=== PATIENT | male | born 1950 | race Caucasian/White ===

== ENCOUNTER 2017-06-19 14:31 | Outpatient (CLI) | payer MEDICARE, BC ==
[2017-06-19] MEDS ORDERED: ATORVASTATIN CA10 MG ORAL (16:25)
[2017-06-19] MEDS ORDERED: METFORMIN HCL500 M1 ORAL (16:25)
[2017-06-19] MEDS ORDERED: TAMSULOSIN HCL0.4 MG ORAL (16:26)
--- NOTE | 2017-06-19 16:30 | GI Initial Consult Note ---
Long,Thelma Maico NMorrisPMorris 06/19/17 1630: History of Present Illness General Date patient seen: Jun 19, 2017 Time patient seen: 16:21 Referring physician: None Reason for Consultation: Routine colonoscopy Present Illness HPI 67 year old male presents today for routine colonoscopy. Last colonoscopy performed was over 5 years ago. Denies any abdominal pain or other GI complaints. States he has urges to urinate. No signs of abuse or neglect. Patient is not fall risk. Denies any unintentional weight loss or changes in dietary habits. Home Meds Reported Medications Tamsulosin Hcl (TAMSULOSIN HCL*) 0.4 Mg Cap.er.24h, 0.4 MG ORAL BEDTIME, CAP 06/19/17 Atorvastatin Calcium* (LIPITOR*) 10 Mg Tablet, 10 MG ORAL BEDTIME, TAB 06/19/17 Metformin Hcl* (METFORMIN HCL*) 500 Mg Tablet, 500 MG ORAL TWICE A DAY, TAB 06/19/17 Med list reviewed/reconciled: Yes Allergies: Coded Allergies: No Known Allergies (Unverified , 06/19/17) Patient History History Provided By: Patient PMH Narrative BPH Sleep Apnea No surgical history Family History Narrative Father >> Lung CA Social History: Reports: smoking, other - coffee Review of Systems All Other Systems: negative except mentioned in HPI Physical Exam HT 5'5 WT 164lbs Sp02 EP Interpretation: reviewed, normal General Appearance: well appearing, no apparent distress, alert Head: normocephalic EENT: PERRL/EOMI, normal ENT inspection Neck: supple Respiratory: normal breath sounds, no respiratory distress Cardiovascular: normal rate Gastrointestinal: normal inspection, non tender, soft, normal bowel sounds, non -distended Rectal: deferred Genitourinary: deferred Musculoskeletal: normal inspection, back normal Neurologic: normal inspection, alert, oriented x3, responsive Psychiatric: normal inspection, judgement/insight normal, memory normal Skin: normal inspection, normal color, no rash, warm/dry, palpation normal, well hydrated Lymphatic: normal inspection, no adenopathy GI: Plan Problems: (1) BPH (benign prostatic hyperplasia) (2) Sleep apnea (3) Colonoscopy planned Plan colonoscopy scheduled 07/07/16 - CLD & (Nulytely/Suprep/Movi-Prep) prep instructions given and acknowledged by patient. - NPO @ [place] day prior procedure explained. Seen with Dr. Saravia. Thank you for this patient referral. SHEELA SARAVIA 06/24/17 1227: History of Present Illness Present Illness Home Meds Reported Medications Tamsulosin Hcl (TAMSULOSIN HCL*) 0.4 Mg Cap.er.24h, 0.4 MG ORAL BEDTIME, CAP 06/19/17 Atorvastatin Calcium* (LIPITOR*) 10 Mg Tablet, 10 MG ORAL BEDTIME, TAB 06/19/17 Metformin Hcl* (METFORMIN HCL*) 500 Mg Tablet, 500 MG ORAL TWICE A DAY, TAB 06/19/17 Allergies: Coded Allergies: No Known Allergies (Unverified , 06/19/17) GI: Plan Plan The patient was seen and examined at bedside and all new and available data was reviewed in the patients chart. I agree with the above findings, impression and plan. (Patient seen earlier today. Signature stamp does not reflect patient encounter time.). - MD Mercedes Rod Anh Maico Grier Jun 19, 2017 16:30 SHEELA SARAVIA Jun 24, 2017 12:27
== END 2017-06-19 15:05 | disposition home or self-care (01) ==
LOC: PAN 14:31
DX: N40.0 Benign prostatic hyperplasia without lower urinary tract symptoms (principal); G47.30 Sleep apnea, unspecified
CPT/HCPCS: 99201

== ENCOUNTER 2017-07-14 09:09 | Day surgery (SDC) | payer MEDICARE, BC ==
[2017-07-14] VITALS (8 sets, daily range): BP systolic 128–144; BP diastolic 74–85
[~2017-07-14] VITALS: Ht 167.6 cm; Wt 72.6 kg
--- NOTE | 2017-07-14 07:03 | Anethesia Preoperative Eval ---
Anesthesia Pre-op PMH/ROS General Date of Evaluation: Jul 14, 2017 Time of Evaluation: 07:02 Anesthesiologist: lia ASA Score: ASA 3 Mallampati Score Class I : Soft palate, uvula, fauces, pillars visible Class II: Soft palate, uvula, fauces visible Class III: Soft palate, base of uvula visible Class IV: Only hard plate visible Mallampati Classification: Class II Surgeon: roderick Diagnosis: gerd/colon screening Surgical Procedure: egd/colonoscopy Anesthesia History: none Social History: current smoker Family History: no anesthesia problems Allergies: Coded Allergies: No Known Allergies (Unverified , 06/19/17) Medications: see eMAR Past Medical History Pulmonary: Reports: JAME Endocrine: Reports: DM Anesthesia Pre-op Phys. Exam Physician Exam Last Vital Signs Date Time Temp Pulse Resp B/P (MAP) Pulse Ox O2 Delivery O2 Flow Rate FiO2 07/14/17 09:31 97.6 60 18 144/77 98 Room Air Constitutional: NAD Neurologic: CN 2-12 intact Cardiovascular: RRR Respiratory: CTA Gastrointestinal: S/NT/ND Airway Exam Mallampati Score: Class II MO: full Neck: short TMD: 2fb ROM: limited Anesthesia Pre-op A/P Studies Pre-op Studies: EKG - nsr Risk Assessment & Plan Assessment: asa3 Plan: mac Status Change Before Surgery: No Pre-Antibiotics Drug: JAYE Norman Jul 14, 2017 07:03
[~2017-07-14 09:09] MED LIST: ATORVASTATIN CA10 MG ORAL; METFORMIN HCL500 M1 ORAL; TAMSULOSIN HCL0.4 MG ORAL
--- NOTE | 2017-07-14 10:25 | Pre-Procedure Note/Attestation ---
Pre-Procedure Note/Attestation Complete Prior to Procedure Planned Procedure: not applicable Procedure Narrative: esophagogastroduodenoscopy and colonoscopy Indications for Procedure Pre-Operative Diagnosis: gerd, screening colon Attestation I attest that I discussed the nature of the procedure; its benefits; risks and complications; and alternatives (and the risks and benefits of such alternatives ), prior to the procedure, with the patient (or the patient's legal farm loan representative). I attest that, if there was a reasonable possibility of needing a blood transfusion, the patient (or the patient's legal farm loan representative) was given the [facility] standardized written summary, pursuant to the [employer] [place] Blood Safety Act ([place] Health and Safety Code # 1645, as amended). I attest that I re-evaluated the patient just prior to the surgery and that there has been no change in the patient's H&P, except as documented below: SHEELA SARAVIA Jul 14, 2017 10:25
--- NOTE | 2017-07-14 10:26 | Short Stay Surgery H&P ---
History of Present Illness History of Present Illness Chief Complaint see recent consult note HPI Martin Holt is a 67 year old male who was admitted on for Gerd/Colon Screening Patient History Allergies: Coded Allergies: No Known Allergies (Unverified , 06/19/17) PAST MEDICAL HISTORY: Past Surgeries: Social History: Medication History Scheduled Atorvastatin Calcium* (Lipitor*), 10 MG ORAL BEDTIME, (Reported) Metformin Hcl* (Metformin Hcl*), 500 MG ORAL TWICE A DAY, (Reported) Tamsulosin Hcl (Tamsulosin Hcl*), 0.4 MG ORAL BEDTIME, (Reported) Physical Exam Vital Signs Last Vital Signs Date Time Temp Pulse Resp B/P (MAP) Pulse Ox O2 Delivery O2 Flow Rate FiO2 07/14/17 09:31 97.6 60 18 144/77 98 Room Air Plan Attestation Are the patient's medical conditions optimized for surgery? SHEELA SARAVIA Jul 14, 2017 10:26
[2017-07-14] MEDS ORDERED: Propofol 200mg/20ml IV ONE (11:00)
[2017-07-14] MEDS ORDERED: Lidocaine 1% MPF 10mg/ml 5ml ONE (11:00)
--- NOTE | 2017-07-14 11:06 | Endoscopy Procedure Note ---
Endoscopy Procedure Note Indication for Procedure: screening colon, GERD Procedures Performed: EGD, colonoscopy Operative Findings/Diagnosis: 2 polyps, gastritis Specimen: yes Pt Tolerated Procedure Well: Yes Estimated Blood Loss: none Anesthesiologist: amara Anesthesia: MAC Implant(s) used?: No 50 yrs or older w/o bx or poly: No 10yrs. F/U not recommended: Yes If not recommended, why?: Above average risk 10 yrs. F/U needed: Yes 18 years or older w/prev. colo: No SHEELA SARAVIA Jul 14, 2017 11:06
[2017-07-14] MEDS ORDERED: Midazolam 2mg/2ml Inj IVP PRN (11:15)
[2017-07-14] MEDS ORDERED: DiphenhydrAMINE 50mg/ml Inj IVP PRN (11:15)
[2017-07-14] MEDS ORDERED: Atropine Inj 1mg/10ml Syr IV PRN (11:15)
[2017-07-14] MEDS ORDERED: fentaNYL 100 mcg/2 mL IV PRN (11:15)
--- NOTE | 2017-07-14 15:45 | Procedure Note ---
DATE OF PROCEDURE: 07/14/2017 SURGEON: Trey Crisostomo M.D. PROCEDURE: Upper endoscopy with biopsy and colonoscopy with biopsy. ANESTHESIA: Per Dr. Cross. INSTRUMENT: Olympus adult upper endoscope and colonoscope. INDICATION: Screening colonoscopy evaluation and chronic GERD. The procedure, risks, benefits, and possible consequences, including hemorrhage, aspiration, perforation and infection, and alternative treatments, were explained to the patient/legal guardian by Dr. Trey Crisostomo and the patient/legal guardian understood and accepted these risks. DESCRIPTION OF PROCEDURE: After informed consent was obtained and the patient was adequately sedated, Olympus upper endoscope was advanced from mouth into the second portion of the duodenum, and retroflexion was performed in the stomach. The patient has some irregular Z-line at about 37 cm from the incisors. No evidence of any obvious ulcerations or mass. In the stomach, there was diffuse gastritis, mildly atrophic. Biopsy from antrum and body was obtained to rule out H. pylori infection. The rest of the upper endoscopic examination was grossly looked within normal limit. At this time, the upper endoscope was retrieved and the patient was turned over for colonoscopy. First, a rectal exam was performed, which was positive for internal hemorrhoids and the scope was advanced from the rectum into the cecum, documented by appendix orifice, ileocecal valve, and right upper quadrant palpation. Quality of prep was fair. Over 10% of the colonic mucosa was not examined given this prep. The patient had two polyps in the transverse colon, each measured about 5 to 6 mm, removed with cold biopsy forceps technique. Rest of the colonic examination was grossly within normal limits. Retroflexion in the rectum showed evidence of few medium-sized nonbleeding internal hemorrhoids. SUMMARY OF FINDINGS: 1. Irregular Z-line. 2. Mildly atrophic gastritis, status post biopsy. 3. Two colonic polyps removed. See above for details. 4. Fair colonic prep. 5. Internal hemorrhoids. RECOMMENDATIONS: Follow up biopsies and treat accordingly. Trey Crisostomo M.D. DR: AMOL JOB#: [id number] CC:
--- NOTE | 2017-07-14 18:21 | Immediate Post-Op Evaluation ---
Immediate Post-Op Evalulation Immediate Post-Op Evalulation Procedure: egd/colonoscopy Date of Evaluation: Jul 14, 2017 Time of Evaluation: 11:27 IV Fluids: 500ml 0.9ns Blood Products: none Estimated Blood Loss: negligible Blood Pressure Systolic: 135 Blood Pressure Diastolic: 85 Pulse Rate: 58 Respiratory Rate: 18 O2 Sat by Pulse Oximetry: 100 Temperature (Fahrenheit): 97.2 Pain Score (1-10): 0 Nausea: No Vomiting: No Complications none Patient Status: awake, reacts, patent Hydration Status: adequate Drug: JAYE Norman Jul 14, 2017 18:21
--- NOTE | 2017-07-14 18:23 | 48 Hour Post Anesthesia Eval ---
Post Anesthesia Evaluation Procedure: egd/colonoscopy Date of Evaluation: Jul 14, 2017 Time of Evaluation: 11:29 Blood Pressure Systolic: 129 0: 79 Pulse Rate: 54 Respiratory Rate: 18 Temperature (Fahrenheit): 97.2 O2 Sat by Pulse Oximetry: 100 Airway: patent Nausea: No Vomiting: No Pain Intensity: 0 Hydration Status: adequate Cardiopulmonary Status: stable Mental Status/LOC: patient returned to baseline Post-Anesthesia Complications: none Follow-up care needed: N/A JAYE MCMILLAN Jul 14, 2017 18:23
--- NOTE | 2017-07-23 18:40 | Cardiology Report ---
APPROVED REPORT EKG Measurement Heart [id number] Normal sinus rhythm Normal ECG
== END 2017-07-14 12:10 | disposition home or self-care (01) ==
LOC: GAS 09:09
DX: Z12.11 Encounter for screening for malignant neoplasm of colon (principal); K21.9 Gastro-esophageal reflux disease without esophagitis; K29.40 Chronic atrophic gastritis without bleeding; K63.5 Polyp of colon; D12.3 Benign neoplasm of transverse colon; K64.8 Other hemorrhoids; G47.33 Obstructive sleep apnea (adult) (pediatric); E11.9 Type 2 diabetes mellitus without complications; Z79.84 Long term (current) use of oral hypoglycemic drugs; F17.210 Nicotine dependence, cigarettes, uncomplicated
CPT/HCPCS: 43239; 45380; 82962; 93005; J2704; 94003; 94150

== ENCOUNTER 2017-07-24 14:54 | Outpatient (CLI) | payer MEDICARE, BC ==
--- NOTE | 2017-07-24 15:07 | GI Progress Note ---
Assessment/Plan Problems: (1) Colonoscopy planned SNOMED: [id number] Status: stable Status Narrative Seen with Dr. Crisostomo. Assessment/Plan s/p EGD/colonoscopy SUMMARY OF FINDINGS: 1. Irregular Z-line. 2. Mildly atrophic gastritis, status post biopsy. 3. Two colonic polyps removed. See above for details. 4. Fair colonic prep. 5. Internal hemorrhoids. RECOMMENDATIONS: Follow up biopsies and treat accordingly. >> unremarkable RTC PRN repeat colonoscopy x 5 years Subjective Gastrointestinal/Abdominal: Reports: no symptoms Objective T 98 BP 117/74 P 75 General Appearance: WD/WN, no apparent distress, alert Cardiovascular: normal rate Respiratory/Chest: normal breath sounds, no respiratory distress Abdominal Exam: normal bowel sounds, non tender, soft Extremities: normal range of motion, non-tender Thelma Long N.P. Jul 24, 2017 15:07
[2017-07-24 16:13] VITALS: BP 117/74
== END 2017-07-24 15:30 | disposition home or self-care (01) ==
LOC: PAN 14:54
DX: K29.40 Chronic atrophic gastritis without bleeding (principal); K63.5 Polyp of colon; K64.8 Other hemorrhoids
CPT/HCPCS: 99211